=== PATIENT | female | born 1990 | race Caucasian/White ===

== ENCOUNTER 2017-03-17 08:23 | Day surgery (SDC) | payer OTHER ==
--- NOTE | 2017-02-26 11:42 | HP ---
DATE OF ADMISSION: 02/26/2017 HISTORY OF PRESENT ILLNESS: This is the second orthopedic outpatient admission for surgery for this 26-year- old female who is being scheduled for a right carpal tunnel release. The patient has had previous carpal tunnel symptoms, has been treated in a conservative fashion. 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 With the increase in symptoms and problems, the patient has decided to undergo the surgery. The procedure has been outlined to her. She is familiar to it as she did undergo a previous left carpal tunnel release approximately 9 months ago. She understands the procedure and has consented to it. ALLERGIES: No known drug allergies. PAST MEDICAL HISTORY: She has been a healthy 26-year-old female. CURRENT MEDICATIONS: She is currently on no medications. PAST SURGICAL HISTORY: Positive. She has had previous left carpal tunnel surgery, 05/08/2016. She notes that she requests general anesthesia. Bleeding history is negative. Blood clot history is negative. SOCIAL HISTORY: The patient is a nonsmoker. Alcohol is only on rare occasion. PHYSICAL EXAMINATION: GENERAL: Examination today reveals a well-developed and well-nourished 26-year- old female in [id number] distress. HEAD, EYES, EARS, NOSE, AND THROAT: Normocephalic. NECK: Supple. CHEST: Clear. COR: Regular rate. ABDOMEN: Soft. : Intact EXTREMITIES: Examination of the right wrist reveals positive pain to pressure over the carpal tunnel area with pain extending up into the forearm. Positive Tinel's examination. ASSESSMENT: Right carpal tunnel syndrome, failed treatment. PLAN: Plan is for the patient to undergo right carpal tunnel ligament release. The procedure has been outlined to her. She understands the procedure and has consented to it. MMODAL /[id number]
[~2017-03-17 08:23] MED LIST: Bupivacaine 0.5% 30 ML SDV ONE; Dexamethasone 4 MG/ML SDV ONE; Ketorolac 30 MG/ML SDV ONE; Lactated Ringers 1,000 ML IV SCH; Lidocaine 1% 6 ML ONE; Lidocaine 1%/Sod Bicarbonate in NS 8.4% 1 ML Syringe PRN; Midazolam 1 MG/ML 2 ML SDV ONE; Ondansetron 4 MG/2 ML SDV ONE; Propofol 200 MG/20 ML SDV ONE; Sodium Chloride 0.9% 10 ML Syringe FLUSH PRN; ceFAZolin 1 GM Vial ONE; fentaNYL 100 MCG/2 ML SDV ONE
--- NOTE | 2017-03-17 08:37 | PCM.PREANE ---
Preanesthetic Assessment - Procedure Proposed Procedure: Right carpal tunnel release - Anesthesia/Transfusion/Family Hx Anesthesia History: Prior Anesthesia Without Reaction Type of Anesthesia Reaction: Unknown Family History of Anesthesia Reaction: No Family History of Anesthesia Reaction, Other: Unknown- with mother Transfusion History: No Prior Transfusion(s) Type of Transfusion Reactions: Reports: Unknown Intubation History: Unknown - Review of Systems General: No Symptoms Pulmonary: No Symptoms Cardiovascular: No Symptoms Gastrointestinal: No symptoms Neurological: Numbness, Tingling (In right hand when sleeping) Other: Reports: Easy Bruising (History of) - Physical Assessment NPO Status Date: 03/16/17 NPO Status Time: 22:00 Pulse: 97 O2 Sat by Pulse Oximetry: 100 Respiratory Rate: 16 Blood Pressure: 113/76 Temperature: 37.0 C Height: 1.63 m Weight: 87.543 kg ASA Class: 1 Mental Status: Alert & Oriented x3 Dentition: Reports: Normal Dentition Thyro-Mental Finger Breadths: 3 Mouth Opening Finger Breadths: 3 ROM/Head Extension: Full Lungs: Clear to auscultation, Normal respiratory effort Cardiovascular: Regular Rate, Regular Rhythm, No Murmurs - Allergies Allergies/Adverse Reactions: Allergies Allergy/AdvReac Type Severity Reaction Status Date / Time No Known Allergies Allergy Verified 03/16/17 15:43 - Anesthesia Plan Pre-Op Medication Ordered: None - Acknowledgements Anesthesia Type Planned: JAYME (with MAC) Pt an Appropriate Candidate for the Planned Anesthesia: Yes Alternatives and Risks of Anesthesia Discussed w Pt/Guardian: Yes Pt/Guardian Understands and Agrees with Anesthesia Plan: Yes PreAnesthesia Questionnaire - Past Health History Medical/Surgical History: Denies Medical/Surgical History HEENT History: Reports: None Cardiovascular History: Reports: None Respiratory History: Reports: None Gastrointestinal History: Reports: None Genitourinary History: Reports: None [employer] History: Musculoskeletal History: Reports: None Neurological History: Reports: None Psychiatric History: Reports: None Endocrine/Metabolic History: Reports: None Hematologic History: Reports: None Immunologic History: Reports: None Oncologic (Cancer) History: Reports: None Dermatologic History: Reports: None - Past Surgical History Musculoskeletal Surgical History: Reports: Other (See Below) Other Musculoskeletal Surgeries/Procedures:: Knee surgery - SUBSTANCE USE Smoking Status *Q: Never Smoker Second Hand Smoke Exposure: No Recreational Drug Use History: No - HOME MEDS Home Medications: Home Meds Biotin 1,000 mcg PO DAILY 03/16/17 [History] Vits #93/Iron Fum/FA [ Formula Tablet] 1 tab PO DAILY 03/16/17 [History] - CURRENT (IN HOUSE) MEDS Current Meds: Current Medications Lactated Ringer's (Ringers, Lactated) 1,000 mls @ 125 mls/hr IV ASDIRECTED [facility] Stop: 03/17/17 23:00 Lidocaine/Sodium Bicarbonate (Buffered Lidocaine 1% In Ns 8.4%) 0.25 ml .XX ONETIME PRN PRN Reason: Prior to IV Start Stop: 03/17/17 18:00 Sodium Chloride (Saline Flush) 10 ml FLUSH ASDIRECTED PRN PRN Reason: Keep Vein Open Stop: 03/17/17 18:00 Discontinued Medications Cefazolin Sodium (Ancef) Confirm Administered Dose 2 gm .ROUTE .STK-MED ONE Stop: 03/17/17 07:30 Dexamethasone (Dexamethasone) Confirm Administered Dose 4 mg .ROUTE .STK-MED ONE Stop: 03/17/17 07:30 Fentanyl (Sublimaze) Confirm Administered Dose 100 mcg .ROUTE .STK-MED ONE Stop: 03/17/17 07:30 Lactated Ringer's (Ringers, Lactated) 1,000 mls @ 125 mls/hr IV ASDIRECTED [facility] Stop: 03/16/17 23:00 Lidocaine HCl (Xylocaine-Mpf 1%) Confirm Administered Dose 6 mls @ as directed .ROUTE .STK-MED ONE Stop: 03/17/17 07:30 Ketorolac Tromethamine (Toradol) Confirm Administered Dose 30 mg .ROUTE .STK- MED ONE Stop: 03/17/17 07:30 Lidocaine/Sodium Bicarbonate (Buffered Lidocaine 1% In Ns 8.4%) 0.25 ml .XX ONETIME PRN PRN Reason: Prior to IV Start Stop: 03/16/17 18:00 Midazolam HCl (Versed 1 Mg/Ml) Confirm Administered Dose 2 mg .ROUTE .STK-MED ONE Stop: 03/17/17 07:31 Ondansetron HCl (Zofran) Confirm Administered Dose 4 mg .ROUTE .STK-MED ONE Stop: 03/17/17 07:30 Propofol (Diprivan 20 Ml) Confirm Administered Dose 200 mg .ROUTE .STK-MED ONE Stop: 03/17/17 07:30 Sodium Chloride (Saline Flush) 10 ml FLUSH ASDIRECTED PRN PRN Reason: Keep Vein Open Stop: 03/16/17 18:00
[2017-03-17] MEDS ORDERED: Ondansetron 4 MG/2 ML SDV IVPUSH PRN ×2 (08:48→09:25)
[2017-03-17] MEDS ORDERED: Ketorolac 30 MG/ML SDV IVPUSH PRN (08:48)
[2017-03-17] MEDS ORDERED: traMADol 50 MG Tab PO PRN (08:48)
[2017-03-17] MEDS ORDERED: Sodium Bicarbonate 8.4% 50 MEQ/50 ML SDV ONE (08:51)
[2017-03-17] MEDS ORDERED: Lidocaine 0.5% 50 ML SDV ONE (08:51)
[2017-03-17] MEDS ORDERED: Midazolam 1 MG/ML 2 ML SDV ONE ×2 (09:34→09:45)
[2017-03-17] MEDS ORDERED: fentaNYL 100 MCG/2 ML SDV ONE (09:38)
--- NOTE | 2017-03-17 10:04 | PCM48HPAN ---
Post Anesthesia Note - EVALUATION WITHIN 48HRS OF ANESTHETIC Vital Signs in Normal Range: Yes Patient Participated in Evaluation: Yes Respiratory Function Stable: Yes Airway Patent: Yes Cardiovascular Function Stable: Yes Hydration Status Stable: Yes Pain Control Satisfactory: Yes Nausea and Vomiting Control Satisfactory: Yes Mental Status Recovered: Yes
[2017-03-17] MEDS ORDERED: HYDROmorphone 0.5 MG/0.5 ML Syringe IVPUSH PRN (10:25)
[2017-03-17 11:18] VITALS: BP 100/67
--- NOTE | 2017-03-17 13:42 | OR ---
DATE OF OPERATION: 03/17/2017 SURGEON: Fidel Sterling MD PREOPERATIVE DIAGNOSIS: Severe carpal tunnel syndrome, right wrist. POSTOPERATIVE DIAGNOSIS: Severe carpal tunnel syndrome, right wrist. ANESTHESIA: Miles block with sedation. OPERATION PERFORMED: Right wrist carpal tunnel ligament release, mini. DESCRIPTION OF PROCEDURE: The patient was taken to the operative room in supine position. She was placed under a light sedation with Miles block anesthesia to the right upper extremity. After prepping and draping, the operation began with an incision being based approximately 1 cm distal to the flexion crease of the wrist, paralleling the radial aspect of the ring finger. Approximately a 1.5-cm incision was used penetrating through the skin and subcutaneous tissues. These were dissected off the palmar fascia, which was exposed, which was then lightly released proximally and distally to expose the carpal ligament. Carpal ligament was then incised down to the carpal canal by direct visualization and then the operation proceeded with release of the ligament proximally to just above the flexion crease using the mini instruments. Once that was completed, the operation proceeded with release of the ligament distally. Of note, the patient had accessary muscle extending from the hypothenar eminence to the thenar eminence, which was fairly thick. The muscle was then released down to the major portion of the ligament and by direct visualization, the ligament was then released distally paralleling the median nerve to the palmar fat pad area. The area was then probed to make sure no fibrous bands remained across the nerve. Once that was satisfied, the operation proceeded proximally to reinspect the area released proximally, which was clean. The nerve itself showed slight compression in the midportion of it with some mild deformity. The vasa vasorum returned quite nicely. The operation proceeded with irrigation of wound area. The skin was closed with a horizontal 4-0 Prolene mattress suture and then reinforced with 5- 0 Prolene vertical. The patient was then placed in standard dressings and splint. She tolerated this procedure well and left the operating room in stable condition to room for recovery. ESTIMATED BLOOD LOSS: MMODAL /[id number]
== END 2017-03-17 11:10 | disposition home or self-care (01) ==
LOC: JD.SDS 08:23
PROVIDERS: ATTEND Specialist
DX: G56.01 Carpal tunnel syndrome, right upper limb (principal); Z79.899 Other long term (current) drug therapy
CPT/HCPCS: 64721; J0690; J1100; J1170; J1885; J2250; J2405; J3010; J7120; 01810; J2704